=== PATIENT | male | born 1985 | race Caucasian/White ===

== ENCOUNTER → 2019-10-10 | Outpatient (CLI) | payer OTHER ==
--- NOTE | 2019-10-10 11:43 | Diagnostic Imaging Report ---
INDICATION: 5th metacarpal fracture. TIME OF EXAM: 11:33 AM 3 views of the right hand were obtained. FINDINGS: The hand is encased in a fiberglass cast obscuring bone detail. There appears to be a comminuted fracture of the distal 5th metacarpal. No significant displacement or angulation is seen. Remaining metacarpals are intact. Phalanges are somewhat obscured on this study due to the cast material and the fingers being held in flexion. Carpus is unremarkable. IMPRESSION: Distal 5th metacarpal fracture, demonstrating normal anatomic alignment. Dictated by: Dictated on workstation # [id number]
== END ==
LOC: RAD FS 11:27
PROVIDERS: ATTEND Nurse Practitioner
DX: S62.336A Displaced fracture of neck of fifth metacarpal bone, right hand, initial encounter for closed fracture (principal); X58.XXXA Exposure to other specified factors, initial encounter
CPT/HCPCS: 73130

== ENCOUNTER → 2019-10-24 | Outpatient (CLI) | payer OTHER ==
--- NOTE | 2019-10-24 09:59 | Diagnostic Imaging Report ---
CLINICAL HISTORY: Follow-up hand fracture. COMPARISON: 10/10/2019. TECHNIQUE: 3 views of the right hand. Please note the images are labeled left hand. However, the comparison for the follow-up fracture indicates this the right hand. FINDINGS: There is a stable appearance of the comminuted fracture involving the distal fifth metacarpal. Alignment is anatomic. No new fractures are identified. Casting material is again noted overlying the right hand which somewhat obscures soft tissue and bony detail. IMPRESSION: 1. Stable appearance of the comminuted fracture involving the right distal fifth metacarpal. Please note there is discrepancy on the images which are labeled left hand. 2. No new fractures are seen in the right hand. Dictated by: Dictated on workstation # [id number]
== END ==
LOC: RAD FS 09:20
PROVIDERS: ATTEND Nurse Practitioner
DX: S62.306D Unspecified fracture of fifth metacarpal bone, right hand, subsequent encounter for fracture with routine healing (principal)
CPT/HCPCS: 73130

== ENCOUNTER → 2019-11-07 | Outpatient (CLI) | payer OTHER ==
--- NOTE | 2019-11-07 10:38 | Diagnostic Imaging Report ---
INDICATION: Followup of left hand fracture. TIME OF EXAM: 10:25 AM Correlation is made with prior radiograph from 10/24/2019. Previous noted cast has been removed. There is a healing fracture of the distal 5th metacarpal. Moderate callus formation is present. Fracture lines do remain partly visible however. Alignment appears to be anatomic. Remaining metacarpals and phalanges are intact. Carpus is unremarkable. IMPRESSION: Healing distal 5th metacarpal fracture. Fracture lines do remain partially visible. Dictated by: Dictated on workstation # [id number]
== END ==
LOC: RAD FS 10:13
PROVIDERS: ATTEND Nurse Practitioner
DX: S62.337D Displaced fracture of neck of fifth metacarpal bone, left hand, subsequent encounter for fracture with routine healing (principal); X58.XXXD Exposure to other specified factors, subsequent encounter
CPT/HCPCS: 73130

== ENCOUNTER → 2019-11-21 | Outpatient (CLI) | payer OTHER ==
--- NOTE | 2019-11-21 09:12 | Diagnostic Imaging Report ---
INDICATION: Left hand fracture, follow-up. Time of exam 8:36 AM Correlation is made with prior radiographs from 11/07/2019. A fracture involving the distal 5th metacarpal is again noted. There is callus at the fracture site which appears to be slightly increased since prior. Fracture lines do remain partly visible however. Overall alignment is anatomic. Remaining metacarpals and phalanges are intact. Carpus is unremarkable. IMPRESSION: Healing distal 5th metacarpal fracture. Fracture lines do remain partly visible. Dictated by: Dictated on workstation # [id number]
== END ==
LOC: RAD FS 08:30
PROVIDERS: ATTEND Nurse Practitioner
DX: S62.337D Displaced fracture of neck of fifth metacarpal bone, left hand, subsequent encounter for fracture with routine healing (principal)
CPT/HCPCS: 73130